=== PATIENT | male | born 1975 | race Caucasian/White ===

== ENCOUNTER 2021-05-03 14:35 | Emergency (ER) | payer BC ==
[~2021-05-03] VITALS: Ht 170.2 cm; Wt 89.5 kg
[2021-05-03] MEDS ORDERED: NEXI40CA PO (14:45)
[2021-05-03] MEDS ORDERED: GABA-282 PO (14:45)
[2021-05-03] MEDS ORDERED: LISI5TAB11 PO (14:45)
[2021-05-03] MEDS ORDERED: LIDOCAINE 5% (LIDODERM) PATCH TD ONE (15:20)
[2021-05-03] MEDS ORDERED: KETOROLAC 60MG 2ML VIAL IM ONE (15:20)
[2021-05-03] MEDS ORDERED: methocarbamoL 750 MG TAB PO ONE (15:20)
[2021-05-03] MEDS ORDERED: METH-1165 PO (15:21)
[2021-05-03] MEDS ORDERED: LIDO5DIS41 TOP (15:22)
[2021-05-03 16:04] VITALS: BP 135/84
[2021-05-03] MEDS ORDERED: **NOTE PATIENT COMMENT** MISC XX SCH (21:00)
== END 2021-05-03 16:09 | disposition home or self-care (01) ==
LOC: M ED 14:35
DX: G89.29 Other chronic pain (principal); M54.2 Cervicalgia; I10 Essential (primary) hypertension; K21.9 Gastro-esophageal reflux disease without esophagitis; F17.210 Nicotine dependence, cigarettes, uncomplicated; Z79.899 Other long term (current) drug therapy
CPT/HCPCS: 96372; 99283; J1885